=== PATIENT | male | born 1960 | race Two or more races ===

== ENCOUNTER 2018-01-31 06:10 | Day surgery (SDC) | payer OTHER | END 2018-01-31 09:10 | disposition home or self-care (01) | LOC: AMB-ENDOS 06:10 | DX: K83.8 Other specified diseases of biliary tract (principal); K82.8 Other specified diseases of gallbladder ==

== ENCOUNTER 2019-08-01 10:00 | Day surgery (SDC) | payer OTHER ==
[~2019-08-01 10:00] MED LIST: ENALAPRIL MALEA20 MG PO; FINASTERIDE5 MG PO; LIPITOR20 MG PO; TENORMIN25 MG PO; VASOF; [UNRECOGNIZED DRUG - OTHER] PO
== END 2019-08-01 17:33 | disposition left against medical advice (07) ==
LOC: CIR.AMB 10:00
DX: M75.122 Complete rotator cuff tear or rupture of left shoulder, not specified as traumatic (principal); M75.22 Bicipital tendinitis, left shoulder